=== PATIENT | female | born 1950 | race Caucasian/White ===

== ENCOUNTER 2016-12-05 17:51 | Emergency (ER) | payer MEDICARE, MEDICAID ==
[2016-12-05 20:12] VITALS: BP 142/62
--- NOTE | 2016-12-05 21:38 | RAD ---
INDICATION: Left knee injury COMPARISON: None TECHNIQUE: AP and lateral views were obtained. FINDINGS: There is advanced osteoarthritis about the medial and patellofemoral joint space compartments. There is minor spurring about the lateral joint space compartment. There is no acute bony change. There is no joint effusion IMPRESSION: OSTEOARTHRITIS. NO ACUTE BONY FINDINGS.
--- NOTE | 2016-12-05 21:39 | RAD ---
INDICATION: Fall. Leg pain COMPARISON: None TECHNIQUE: AP and lateral views were obtained. FINDINGS: There is a medial malleolar fracture. Please for to separate ankle report. No other acute bony findings are seen. There is osteoarthritis about the knee. There is mild diffuse subcutaneous edema which may be related to dependent edema. IMPRESSION: MEDIAL MALLEOLAR FRACTURE.
--- NOTE | 2016-12-05 21:42 | RAD ---
INDICATION: Left ankle injury COMPARISON: None TECHNIQUE: AP, lateral, and oblique views were obtained. FINDINGS: There is a nondisplaced fracture of the medial malleolus. There are no acute additional fractures. There is spurring over the dorsal aspect of the anterior talus perhaps with a remote avulsion. There are heel spurs. There is diffuse soft tissue swelling. IMPRESSION: ACUTE MEDIAL MALLEOLAR FRACTURE.
--- NOTE | 2016-12-05 23:58 | ED ---
Lower Extremity - HPI Summary HPI Summary: Patient presents to ED with CC of left ankle, lower leg and left knee pain after sustaining a fall at home. She states she felt light-headed and tripped. Daughter is with her interpreting for her d/t language barrier. Daughter states she receives 24 hour care at home and states she is being closely followed by several providers for her syncopal episodes and light headed episodes. She takes hydrocodone at baseline at home and took 2 prior to coming to ED. Denies hitting her head, LOC, memory changes or other trauma. Denies SOB, chest pain. States pain is mostly on the lateral and medial sides of the ankle but radiates up the leg to the proximal lower leg and also endorses knee pain. - History of Current Complaint Chief Complaint: EDExtremityLower Stated Complaint: FALL/SWOLLEN LEG Time Seen by Provider: 12/05/16 20:14 Hx Obtained From: Patient Onset of Pain: Immediate Onset/Duration: Days Severity Initially: Moderate Severity Currently: Moderate Pain Intensity: 7 Pain Scale Used: 0-10 Numeric Timing: Constant Location: Is Discrete @ - lateral and medial ankle Character Of Pain: Aching Associated Signs And Symptoms: Positive: Swelling, Knee Pain Aggravating Factor(s): Ambulation, Movement, Weight Bearing Alleviating Factor(s): Rest, Elevation Able to Bear Weight: No - Risk Factors Gout Risk Factors: Age Over 40 - Allergies/Home Medications Allergies/Adverse Reactions: Allergies Allergy/AdvReac Type Severity Reaction Status Date / Time No Known Allergies Allergy Verified 12/05/16 17:59 PMH/Surg Hx/FS Hx/Imm Hx Previously Healthy: Yes Endocrine/Hematology History: Reports: Hx Thyroid Disease Denies: Hx Diabetes Cardiovascular History: Reports: Hx Hypertension Denies: Hx Congestive Heart Failure, Hx Pacemaker/ICD Respiratory History: Reports: Hx Asthma History: Denies: Hx Dialysis, Hx Renal Disease Musculoskeletal History: Reports: Hx Back Problems Sensory History: Denies: Hx Hearing Aid Psychiatric History: Reports: Hx Panic Disorder - anxiety - Surgical History Surgery Procedure, Year, and Place: cardiac catheterization - 2011 Infectious Disease History: No Infectious Disease History: Denies: Traveled Outside the [place] in Last 30 Days - Family History Known Family History: Positive: Cardiac Disease - mother, Hypertension - mother - Social History Occupation: Disabled Lives: Alone Alcohol Use: None Hx Substance Use: No Substance Use Type: Reports: Prescribed Substance Use Comment - Amount & Last Used: hydrocodone Smoking Status (MU): Never Smoked Tobacco Review of Systems Constitutional: Negative Eyes: Negative Cardiovascular: Negative Respiratory: Negative Gastrointestinal: Negative Positive: Arthralgia, Myalgia, Decreased ROM, Edema - L medial and lateral malleolus with pain in L knee All Other Systems Reviewed And Are Negative: Yes Physical Exam Triage Information Reviewed: Yes Vital Signs On Initial Exam: Initial Vitals Temp Pulse Resp BP Pulse Ox 99.6 F 90 18 143/75 99 12/05/16 17:59 12/05/16 17:59 12/05/16 17:59 12/05/16 17:59 12/05/16 17:59 Vital Signs Reviewed: Yes Appearance: Positive: Well-Appearing, No Pain Distress Skin: Positive: Warm, Dry, Other - slight ecchymosis over left lateral malleolus Eyes: Positive: Normal, EOMI ENT: Positive: Normal ENT inspection Neck: Positive: Supple, Nontender, No Lymphadenopathy Respiratory/Lung Sounds: Positive: Clear to Auscultation, Breath Sounds Present Cardiovascular: Positive: Normal Musculoskeletal: Positive: Limited @, Abnormal @, Pain @ - left malleolus, left knee, Other - slight left knee effusion Neurological: Positive: Normal Psychiatric: Positive: Normal Procedures - Splinting Location: left malleolus Hand-Made Type: plaster Splint: sugar-tong - posterior Diagnostics - Vital Signs Vital Signs Temp Pulse Resp BP Pulse Ox 12/05/16 20:11 101.3 F 87 18 142/62 98 12/05/16 19:55 99.8 F 98 18 150/79 98 12/05/16 17:59 99.6 F 90 18 143/75 99 - Laboratory Lab Statement: Any lab studies that have been ordered have been reviewed, and results considered in the medical decision making process. - Radiology No standard instances Xray Interpretation: Positive (See Comments) - left medial malleolar fracture Radiology Interpretation Completed By: Radiologist Lower Extremity Course/Dx - Course Course Of Treatment: patient sent to Xray. daughter provided interpretation. xray showed medial malleolar fractutre, knee and proximal lower leg with no acute findings. posterior sugar tong placed. hydrocodone already prescribed to patient. sent home with crutches and close follow up with ortho in 2-3 days. Assessment/Plan: non weight bearing until follow up with ortho in 2-3 days. - Diagnoses Differential Diagnosis/HQI/PQRI: Positive: Fracture (Closed), Sprain, Strain Provider Diagnoses: Medial malleolar fracture Discharge - Discharge Plan Condition: Stable Disposition: HOME Patient Education Materials: Ankle Fracture (ED) Referrals: Tripp Wadsworth MD [Primary Care Provider] - Chandana Loving MD [Medical Doctor] - Additional Instructions: Non-weight bearing until ortho follow up May take hydrocodone prescribed to you at home for pain management. Ibuprofen as needed for pain and inflammation on opposite schedule as hydrocodone.
== END 2016-12-05 23:12 | disposition home or self-care (01) ==
LOC: ED 17:51
DX: S82.52XA Displaced fracture of medial malleolus of left tibia, initial encounter for closed fracture (principal); W18.09XA Striking against other object with subsequent fall, initial encounter; Y92.009 Unspecified place in unspecified non-institutional (private) residence as the place of occurrence of the external cause; I10 Essential (primary) hypertension; J45.909 Unspecified asthma, uncomplicated; F41.9 Anxiety disorder, unspecified
CPT/HCPCS: 29505; 99281

== ENCOUNTER 2017-12-09 19:25 | Emergency (ER) | payer MEDICARE, MEDICAID ==
--- OUTSIDE RECORDS SUMMARY | 2017-12-09 19:33 | XMS REPORT ---
:1950 External Reference #:[id number] Author Organization [facility] Address [address] [address] Phone [phone] Care Team Providers Name Role Phone Tripp Wadsworth MD Primary Care Physician Unavailable Payers Type Date Identification Numbers Payment Provider Subscriber Medicare Primary Effective: Policy Number: Medicare Amy Mata 2013 [id number] PayID: [id number] [address] [place] [address] [employer] Part B Expires: 2017 Policy Number: Medicaid Amy Mata [id number] Group Name: 1 1 [address] PayID: [id number] [place] [address] Medigap Part B Expires: 2016 Policy Number: Medicaid Amy Mata [id number] Group Name: 1 [address] PayID: [id number] [place] [address] Problems Date Description Provider Status Onset: 06/04/2012 Electrocardiogram abnormal Blanka Valdovinos D.O. Active Onset: 06/26/2012 Abnormal results of cardiovascular Blanka Valdovinos D.O. Active function studies Onset: 07/15/2012 Abnormal results of cardiovascular Maria C Mendoza N.P. Active function studies Onset: 12/25/2016 Closed fracture of medial malleolus Chandana Loving MD Active Onset: 02/15/2016 Obesity Sheila Silva MD Active Onset: 02/15/2016 Disturbance in sleep behavior Sheila Silva MD Active Family History Date Family Member(s) Problem(s) Comments General Hypertension Siblings 8 siblings 4 brothers in good health, 4 sisters in good health. Social History Type Date Description Comments Marital Status Lives With aide Occupation Disabled ETOH Use Denies alcohol use Smoking Denies tobacco use Recreational Drug Use Denies Drug Use Daily Caffeine Does Not Consume Caffeine Daily Caffeine Consumes on average 1 cup of hot tea per day Exercise Type/Frequency Exercises sporadically Allergies, Adverse Reactions, Alerts Date Description Reaction Status Severity Comments 06/03/2012 NKDA active Medications Medication Date Status Form Strength Qnty SIG Indications Ordering Provider Diltiazem CD 11/12/ Active Caps ER 180mg 30caps 1 by I10 Keshav Schroeder 2017 24HR mouth [facility], DO every day FACC Hydrocodone-Oneil 06/05/ Active Tablets 5-325mg 1-2 tabs Unknown taminophen 2015 by mouth every 4- 6 hours as needed pain Amitriptyline 02/13/ Active Tablets 50mg take 1 Unknown HCL 2016 tablets every night Aspir-81 02/13/ Active Tablets DR 81mg 1 by Unknown 2015 mouth every day Docusil 02/13/ Active Capsules 100mg 1 by Unknown 2016 mouth 2x per day Omeprazole 02/13/ Active Tablets DR 20mg 1 by Unknown 2015 mouth every day Symbicort 02/13/ Active Aerosol 80-4.5mcg/ 2 puff Unknown 2015 Act twice a day Simvastatin / Active Tablets 10mg 30tabs 1 po qhs Unknown 0000 Tramadol HCL ER / Active Tablets ER 100mg 60tabs 1 po bid Unknown 0000 24HR as needed for pain Alprazolam / Active Tablets 0.5mg 10tabs 1 po bid Unknown 0000 prn Paxil / Active Tablets 20mg 30tabs 1 po qd Unknown 0000 Hydrocodone-Oneil / Active Tablets 10-325mg Alejo, taminophen 0000 Corby, DO Gabapentin / Active Capsules 100mg Alejo, 0000 Corby, DO Oxycodone HCL 02/13/ Hx Capsules 5mg 1-2 tabs Unknown 2016 - by mouth 06/05/ every 4-6 2016 hours as needed pain Losartan / Hx Tablets 50mg 90tabs 2 po qd I10 Unknown Potassium 0000 - 2017 Citalopram / Hx Tablets 20mg 90tabs 1 po qd Unknown Hydrobromide 0000 - 2015 Xanax 00/ Hx Tablets 1mg 6tabs 1 po bid Unknown 0000 - prn 2015 Medications Administered in Office Medication Date Status Form Strength Qnty SIG Indications Ordering Provider Depomedrol Administered Injection Dirk Kina, 80MG 014 M.D. Vital Signs Date Vital Result Comment 11/12/2017 Height 63 inches 5'3" Weight 252.00 lb with shoes Heart Rate 78 /min BP Systolic 140 mmHg Rue lrg cuff BP Diastolic 80 mmHg Rue lrg cuff BP Systolic Sitting 134 mmHg Lue lrg cuff BP Diastolic Sitting 78 mmHg Lue lrg cuff BP Systolic Standing 128 mmHg Lue lrg cuff BP Diastolic Standing 80 mmHg Lue lrg cuff Respiratory Rate 18 /min BMI (Body Mass Index) 44.6 kg/m2 Ejection Fraction 55-60% 07/29/2014-echo 04/03/2017 Height 63 inches 5'3" Weight 243.00 lb Heart Rate 82 /min BP Systolic 150 mmHg BP Diastolic 98 mmHg Respiratory Rate 15 /min Body Temperature 98.4 F Pain Level 6 BMI (Body Mass Index) 43.0 kg/m2 02/05/2017 Height 63 inches 5'3" Weight 240.00 lb Heart Rate 68 /min Respiratory Rate 16 /min Pain Level 1 BMI (Body Mass Index) 42.5 kg/m2 12/25/2016 Height 63 inches 5'3" Weight 240.00 lb Heart Rate 68 /min Respiratory Rate 19 /min Pain Level 5 BMI (Body Mass Index) 42.5 kg/m2 12/11/2016 Height 63 inches 5'3" Weight 240.00 lb BP Systolic Sitting 112 mmHg BP Diastolic Sitting 78 mmHg Respiratory Rate 16 /min Pain Level 5 BMI (Body Mass Index) 42.5 kg/m2 06/06/2016 Height 63 inches 5'3" Weight 241.00 lb Heart Rate 70 /min BP Systolic 120 mmHg BP Diastolic 64 mmHg Respiratory Rate 14 /min O2 % BldC Oximetry 96 % BMI (Body Mass Index) 42.7 kg/m2 02/15/2016 Height 63 inches 5'3" Weight 241.50 lb Heart Rate 63 /min BP Systolic 128 mmHg BP Diastolic 80 mmHg Respiratory Rate 14 /min O2 % BldC Oximetry 95 % BMI (Body Mass Index) 42.8 kg/m2 Neck Circumference in inches 16 07/07/2014 Height 63 inches 5'3" Weight 246.00 lb Heart Rate 86 /min BP Systolic 130 mmHg BP Diastolic 81 mmHg BMI (Body Mass Index) 43.6 kg/m2 07/15/2012 Height 63 inches 5'3" Weight 252.25 lb Heart Rate 68 /min BP Systolic Sitting 134 mmHg BP Diastolic Sitting 88 mmHg BMI (Body Mass Index) 44.7 kg/m2 06/26/2012 Height 63 inches 5'3" Weight 250.00 lb Heart Rate 68 /min Regular BP Systolic Sitting 130 mmHg BP Diastolic Sitting 90 mmHg BMI (Body Mass Index) 44.3 kg/m2 06/04/2012 Weight 248.25 lb Heart Rate 72 /min BP Systolic Sitting 124 mmHg BP Diastolic Sitting 82 mmHg Results Test Date Test Result H/L Range Note Cath Panel 06/27/2012 PTT (Aptt) 25.9 SEC 25.1-38.5 CBC With Manual Diff 06/27/2012 White Blood Count 4.5 CUMM Low 4.8-10.8 Red Cell Count 4.07 CUMM Low 4.2-5.4 Hemoglobin 13.0 g/dL 12.0-16.0 Hematocrit 38 % 35-47 Mean Corpuscular Volume 92 um3 79-97 Mean Corpuscular Hemoglob 32 pg High 27-31 Mean Corpuscular HGB Cone 35 g/dL 32-36 Redcell Distribution WDTH 13 % 10.5-15 Platelet Count 188 CUMM 150-450 Mean Platelet Volume 10.1 um3 7.4-10.4 Absolute Neutrophil Count 2.5 1.5-7.7 Polysegmented Neutrophil 55 % 38-83 Lymphocyte 32 % 25-47 Monocyte 5 % 0-13 Eosinophil 4 % 0-6 Basophil 2 % 0-2 Atypical Lymph 2 % 0-6 RBC Morphology NORMAL Basic Metabolic Panel 06/27/2012 Sodium 140 mmol/L 135-145 Potassium 4.2 mmol/L 3.5-5.0 Chloride 108 mmol/L 101-111 Co2 (Carbon Dioxide) 28.0 mmol/L 22-32 Anion Gap 4.0 mmol/L 2-11 1 Glucose 97 mg/dL 70-100 BUN 11 mg/dL 6-24 Creatinine 0.5 mg/dL Low 0.50-1.40 One Over Creatinine 2.00 BUN/Creatinine Ratio 22.0 High 8-20 Calcium 8.8 mg/dL 8.1-9.9 eGFR Non- 124.6 > 60 eGFR 160.3 > 60 2 Protime 06/27/2012 Inr 0.86 Low 0.88-1.13 3 Protime 10.2 SEC Low 10.3-13.5 4 1 Anion gap measurement may be of limited value in the presence of any alkalosis, especially in a combined acid base disorder. . 2 Because ethnic data is not always readily available, this report includes an eGFR for both -Americans and non- Americans. The National Kidney Disease Education Program (NKDEP) does not endorse the use of the MDRD equation for patients that are not between the ages of 18 and 70, are , have extremes of body size, muscle mass, or nutritional status, or are non- or non-. According to the National Kidney Foundation, irrespective of diagnosis, the stage of the disease is based on the level of kidney function: Stage Description GFR(mL/min/1.73 m(2)) 1 Kidney damage with normal or decreased GFR 90 2 Kidney damage with mild decrease in GFR 60-89 3 Moderate decrease in GFR 30-59 4 Severe decrease in GFR 15-29 5 Kidney failure <15 (or dialysis) 3 Recommended INR for Patients on Oral Anticoagulants Prophylaxis 2.0 - 3.0 Treatment of thrombosis 2.0 - 3.0 Prevention of embolism 2.0 - 3.0 Prevention of embolism from prosthetic heart valves 2.5 - 3.5 4 DIAGNOSIS,TREATMENT,AND THERAPY MUST BE BASED ON THE INR VALUE ALONE. Procedures Date CPT Code Description Status 11/12/2017 92887 EKG Tracing & Interpretation Completed 12/11/2016 88281 closed treatment of medial malleolus fx w/o Completed maniplulation 04/30/2016 92650 Polysomnography Sleep Staging 4+ Parameters Completed 07/29/2014 83432 ECHO Transthorasic Realtime 2D W Doppler & Color Completed Flow Hosp 07/28/2014 66689 EKG, Interpretation Only Completed 07/07/2014 05180 Xray Knee 3 Views Completed 07/07/2014 48875 Xray Knee 3 Views Completed 07/07/2014 26220 Inject/Drain Joint/Bursa Major Completed 07/01/2012 13267 Left Heart Cath. Incl S/I Coronaries, Angio S/I V Gram Completed If Done 07/01/2012 23864 Left Heart Cath. Incl S/I Coronaries, Angio S/I V Gram Completed If Done 07/01/2012 23991 Left Heart Cath. Incl S/I Coronaries, Angio S/I V Gram Completed If Done 06/04/2012 16097 EKG Tracing & Interpretation Completed Encounters Type Date Location Provider CPT E/M Dx Office Visit 04/03/2017 1:30p [facility] Cast[facility] M.D. 31040 M17.12 C.MAdeel M17.11 Office Visit 06/06/2016 9:30a [facility] Emerald Harrington, 97169 R06.83 Services Of Kody ORTEGA RN, [facility]- G47.9 Office Visit 02/15/2016 8:45a [facility] [place] [address] G47.9 Services Of Kody E66.09 Office Visit 07/30/2014 2:42p [facility], Scott Messina M.D. 48523 427.31 Hospitalists 724.2 780.60 401.9 Office Visit 07/29/2014 2:41p [facility], Scott Messina M.D. 27731 780.60 Hospitalists 427.31 724.2 401.9 Office Visit 07/28/2014 2:40p [facility] [place] [facility] [place] [address] 427.31 Assoc, Hospitalraghu Ruth 780.60 401.9 724.2 Office Visit 07/07/2014 2:15p [facility] Castanon M.D. 71415 716.96 Of C.M.ABill Office Visit 07/15/2012 10:00a [facility] Maria C Mendoza, 37987 794.39 N.P. Office Visit 06/26/2012 1:40p [facility] Blanka Valdovinos, 07640 794.31 [facility] D.O. 401.1 794.30 V72.81 272.4 Office Visit 06/04/2012 1:40p [facility] Blanka Valdovinos D.O. 48316 794.31 V72.81 401.1 272.4 Plan of Care 11/12/2017 - Keshav Duke DO FACCI48.0 Paroxysmal atrial fibrillationNew Orders:[facility] TelemetryComments:Stop taking losartan ( only lowers blood pressure)Start taking diltiazem (lowers both blood pressureand heart rate), we may need a higher dose in the future.Follow up: after [id number] Essential (primary) hypertensionNew Medication:Diltiazem CD 180 mg
[2017-12-09] MEDS ORDERED: NS 0.9% 1000 ML* 1,000 ML IV ONE (20:04)
[2017-12-09 20:37] LABS: ABS Basophils 0.1 10^3/ul (0-0.2); ABS Eosinophils 0.1 10^3/ul (0-0.6); ABS Lymphocytes 2.1 10^3/ul (1.0-4.8); ABS Monocytes 0.6 10^3/ul (0-0.8); ABS Nucleated RBC 0 10^3/ul; Eosinophil % 2.1 % (0-6); Hematocrit 36 % (35-47); Hemoglobin 11.9 g/dl (12.0-16.0); Lymphocyte % 35.2 % (25-47); Mean Corpuscular HGB Conc 34 g/dl (31-36); Mean Corpuscular Hemoglobin 30 pg (27-31); Mean Corpuscular Volume 89 fL (80-97); Mean Platelet Volume 9 um3 (7.4-10.4); Nucleated Red Blood Cells % 0.1; Platelet Count 187 10^3/ul (150-450); Red Blood Count 3.97 10^6/ul (4.0-5.4); Red Cell Distribution Width 13 % (10.5-15); White Blood Count 5.9 10^3/ul (3.5-10.8)
[2017-12-09 20:51] LABS: EGFR Non-African American 103.1 (>60)
[2017-12-09 21:32] LABS: Urine Appearance Clear; Urine Blood Negative (Negative); Urine Color Colorless; Urine Ketones Negative (Negative); Urine Protein Negative (Negative); Urine Specific Gravity 1.003 (1.010-1.030); Urine Urobilinogen Negative (Negative)
[2017-12-09 21:49] VITALS: BP 143/79
--- NOTE | 2017-12-09 22:45 | ED ---
Ann Cristobal Gabriel, scribed for Antelmo Major MD on 12/09/17 at 2004 . Complex/Multi-Sys Presentation - HPI Summary HPI Summary: This patient is a 67 year old F [place] [facility] [place] by her daughter who is acting as a spanish speaking nanny. The daughter reports her mother felt like her limbs were numb, she had palpitations, was SOB, had a hot sensation in her chest, and a near syncope feeling. The symptoms began at 1800 tonight while she was sitting on the computer and reports a BP of 180/120 during. Patient denies cough , fever, and rhinorrhea. She has a history of anxiety and panic attack but says that this felt different. Currently they has all resolved except for a numbness in her limbs. - History Of Current Complaint Chief Complaint: EDChestPainROMI Time Seen by Provider: 12/09/17 19:39 Hx Obtained From: Family/Coroner Transport Technician Onset/Duration: Lasting Hours, Resolved Timing: Intermittent, Lasting: Severity Currently: None Severity Initially: Moderate Associated Signs And Symptoms: Positive: SOB, Chest Pain, Palpitations, Other - felt like her limbs were numb, she had palpitations, was SOB, had a hot sensation in her chest, and a near syncope feeling - Allergies/Home Medications Allergies/Adverse Reactions: Allergies Allergy/AdvReac Type Severity Reaction Status Date / Time No Known Allergies Allergy Verified 12/09/17 19:46 PMH/Surg Hx/FS Hx/Imm Hx Endocrine/Hematology History: Reports: Hx Thyroid Disease Denies: Hx Diabetes Cardiovascular History: Reports: Hx Atrial Fibrillation, Hx Hypercholesterolemia , Hx Hypertension Denies: Hx Congestive Heart Failure, Hx Pacemaker/ICD Respiratory History: Reports: Hx Asthma History: Denies: Hx Dialysis, Hx Renal Disease Musculoskeletal History: Reports: Hx Back Problems Sensory History: Denies: Hx Hearing Aid Psychiatric History: Reports: Hx Panic Disorder - anxiety - Surgical History Surgery Procedure, Year, and Place: cardiac catheterization - 2012 - Immunization History Date of Influenza Vaccine: Pt has not recieved Infectious Disease History: No Infectious Disease History: Denies: Traveled Outside the [place] in Last 30 Days - Family History Known Family History: Positive: Cardiac Disease - mother, Hypertension - mother Negative: Respiratory Disease, Seizure Disorder - Social History Alcohol Use: None Hx Substance Use: No Substance Use Type: Reports: Prescribed Substance Use Comment - Amount & Last Used: hydrocodone Hx Tobacco Use: No Smoking Status (MU): Never Smoked Tobacco Review of Systems Negative: Fever Negative: Nasal Discharge Positive: Palpitations, Chest Pain Positive: Shortness Of Breath. Negative: Cough Genitourinary: Other - near syncope Positive: Paresthesia - in all limbs , Numbness - in all limbs All Other Systems Reviewed And Are Negative: Yes Physical Exam - Summary Physical Exam Summary: Appearance: Well-appearing, no distress, Well-nourished Skin: Warm, color reflects adequate perfusion Head: Normal Head/Face inspection Eyes: Conjunctiva clear ENT: Normal inspection Neck: Supple, no nodes, no JVD. Respiratory: Lungs clear, Normal breath sounds, no respiratory distress Cardio: RRR, No murmur, pulses normal, brisk capillary refill Abdomen: soft, nontender, no guarding, no rebound Bowel sounds: present Musculoskeletal: Strength Intact/ ROM intact. No calf tenderness. No edema. Neuro: Alert, muscle tone normal, facial symmetry, speech normal, sensory/motor intact, CN intact II-XII Psychological: Normal Triage Information Reviewed: Yes Vital Signs On Initial Exam: Initial Vitals Temp Pulse Resp BP Pulse Ox 98.5 F 64 16 137/72 99 12/09/17 19:25 12/09/17 19:25 12/09/17 19:25 12/09/17 19:25 12/09/17 19:25 Vital Signs Reviewed: Yes Appearance: Positive: Well-Appearing Diagnostics - Vital Signs Vital Signs Temp Pulse Resp BP Pulse Ox 12/09/17 19:36 68 13 98 12/09/17 19:35 137/72 12/09/17 19:25 98.5 F 64 16 137/72 99 - Laboratory Lab Results: Lab Results 12/09/17 12/09/17 Range/Units 20:25 20:25 WBC 5.9 (3.5-10.8) 10^3/ul RBC 3.97 L (4.0-5.4) 10^6/ul Hgb 11.9 L (12.0-16.0) g/dl Hct 36 (35-47) % MCV 89 (80-97) fL MCH 30 (27-31) pg MCHC 34 (31-36) g/dl RDW 13 (10.5-15) % Plt Count 187 (150-450) 10^3/ul MPV 9 (7.4-10.4) um3 Neut % (Auto) 50.8 (38-83) % Lymph % (Auto) 35.2 (25-47) % Sierra % (Auto) 10.9 H (1-9) % Eos % (Auto) 2.1 (0-6) % Baso % (Auto) 1.0 (0-2) % Absolute Neuts (auto) 3.0 (1.5-7.7) 10^3/ul Absolute Lymphs (auto) 2.1 (1.0-4.8) 10^3/ul Absolute Monos (auto) 0.6 (0-0.8) 10^3/ul Absolute Eos (auto) 0.1 (0-0.6) 10^3/ul Absolute Basos (auto) 0.1 (0-0.2) 10^3/ul Absolute Nucleated RBC 0 10^3/ul Nucleated RBC % 0.1 Sodium 139 (133-145) mmol/L Potassium 4.0 (3.5-5.0) mmol/L Chloride 107 (101-111) mmol/L Carbon Dioxide 28 (22-32) mmol/L Anion Gap 4 (2-11) mmol/L BUN 17 (6-24) mg/dL Creatinine 0.58 (0.51-0.95) mg/dL Est GFR ( Amer) 132.6 (>60) Est GFR (Non-Af Amer) 103.1 (>60) BUN/Creatinine Ratio 29.3 H (8-20) Glucose 110 H (70-100) mg/dL Calcium 8.9 (8.6-10.3) mg/dL Total Bilirubin 0.30 (0.2-1.0) mg/dL AST 12 L (13-39) U/L ALT 10 (7-52) U/L Alkaline Phosphatase 74 (34-104) U/L Troponin I 0.00 (<0.04) ng/mL Total Protein 6.7 (6.4-8.9) g/dL Albumin 3.8 (3.2-5.2) g/dL Globulin 2.9 (2-4) g/dL Albumin/Globulin Ratio 1.3 (1-3) Result Diagrams: 12/09/17 20:25 12/09/17 20:25 Lab Statement: Any lab studies that have been ordered have been reviewed, and results considered in the medical decision making process. - EKG 19:33 Cardiac Rate: NL EKG Rhythm: Sinus Rhythm - at 64 bpm EKG Interpretation: first degree AV block, normal axis, T wave inversions in V2- V6 EKG Comparison: Other - new EKG changes noted Re-Evaluation - Re-Evaluation First Eval Change: Improved - Pt symptomatically improved. pt resting comfortably in bed. Pt symptoms resolved. pt requesting d/c home. Pt with no acute distress. Pt repeat CN exam intact II-XII. Complex Multi-Symp Course/Dx - Diagnoses Differential Diagnoses/HQI/PQRI: Cardiac Ischemia, CVA, Metabolic Abnormality, Urinary Tract Infection Provider Diagnoses: Paresthesia Discharge - Discharge Plan Condition: Improved Disposition: HOME Patient Education Materials: Paresthesia (ED) Referrals: Tripp Wadsworth MD [Primary Care Provider] - 3 Days Additional Instructions: Please follow up with your Physician in 2-3 days. Please return to this Emergency Department if symptoms worsen or return. The documentation as recorded by the Ann martinez Gabriel accurately reflects the service I personally performed and the decisions made by , Antelmo Major MD.
== END 2017-12-09 21:48 | disposition home or self-care (01) ==
LOC: ED 19:25
DX: R20.2 Paresthesia of skin (principal); R00.2 Palpitations
CPT/HCPCS: 36415; 80053; 81003; 84484; 85025; 93005; 96360; 99283

== ENCOUNTER 2018-06-06 08:15 | Emergency (ER) | payer MEDICARE, MEDICAID ==
--- NOTE | 2018-06-06 08:52 | ED ---
Complex/Multi-Sys Presentation - HPI Summary HPI Summary: This is juan Quintanilla documenting for Dr. Samuel Gaitan MD. Pt is a 67 y/o F who presents to ED c/o left wrist pain. This morning she had vertigo and fell when she went to the bathroom, but denies feeling dizzy anymore. She hit her head but did not lose consciousness. Rates her pain intensity as a 5/10 at triage. Denies head pain or abdominal pain. Notes lower back pain. She is ambulatory and walked into ED. Pt also notes that [place] is not her first language. Denies PMHx of heart problems. Has essential tremors at baseline. - History Of Current Complaint Chief Complaint: EDTraumaMultiple Time Seen by Provider: 06/06/18 08:30 Hx Obtained From: Patient Onset/Duration: Lasting Hours, Still Present Severity Currently: Moderate - 5/10 Associated Signs And Symptoms: Positive: Dizziness - resolved, Back Pain, Recent Trauma - Fell in the bathroom. Negative: Syncope, Headache, Abdominal Pain - Allergies/Home Medications Allergies/Adverse Reactions: Allergies Allergy/AdvReac Type Severity Reaction Status Date / Time No Known Allergies Allergy Verified 06/06/18 08:25 PMH/Surg Hx/FS Hx/Imm Hx Endocrine/Hematology History: Reports: Hx Thyroid Disease Denies: Hx Diabetes Cardiovascular History: Reports: Hx Atrial Fibrillation, Hx Hypercholesterolemia , Hx Hypertension Denies: Hx Congestive Heart Failure, Hx Pacemaker/ICD Respiratory History: Reports: Hx Asthma History: Denies: Hx Dialysis, Hx Renal Disease Musculoskeletal History: Reports: Hx Back Problems Sensory History: Denies: Hx Hearing Aid Psychiatric History: Reports: Hx Panic Disorder - anxiety - Surgical History Surgery Procedure, Year, and Place: cardiac catheterization - 2011 - Immunization History Date of Influenza Vaccine: Pt has not recieved Infectious Disease History: No Infectious Disease History: Denies: Traveled Outside the [place] in Last 30 Days - Family History Known Family History: Positive: Cardiac Disease - mother, Hypertension - mother Negative: Respiratory Disease, Seizure Disorder - Social History Alcohol Use: None Hx Substance Use: No Substance Use Type: Reports: Prescribed Substance Use Comment - Amount & Last Used: hydrocodone Hx Tobacco Use: No Smoking Status (MU): Never Smoked Tobacco Review of Systems Positive: Other - Vertigo that is now resolved Negative: Abdominal Pain Positive: Other - lower back pain Negative: Headache, Syncope All Other Systems Reviewed And Are Negative: Yes Physical Exam - Summary Physical Exam Summary: Appearance: Well appearing, no pain distress Skin: abrasion on left foot dorsal aspect, warm, dry, reflects adequate perfusion Head/face: normal Eyes: EOMI, MATTHEW ENT: normal Neck: supple, non-tender Respiratory: CTA, breath sounds present Cardiovascular: RRR, pulses symmetrical Abdomen: non-tender, soft Bowel: present Musculoskeletal: Tenderness over left wrist and right sacroiliac joint, strength /ROM intact Neuro: normal, sensory motor intact, A&Ox3 Triage Information Reviewed: Yes Vital Signs On Initial Exam: Initial Vitals Temp Pulse Resp BP Pulse Ox 99 F 77 20 146/72 96 06/06/18 08:18 06/06/18 08:18 06/06/18 08:18 06/06/18 08:18 06/06/18 08:18 Vital Signs Reviewed: Yes Diagnostics - Vital Signs Vital Signs Temp Pulse Resp BP Pulse Ox 06/06/18 08:32 72 22 145/99 95 06/06/18 08:31 72 16 96 06/06/18 08:18 99 F 77 20 146/72 96 - Laboratory Result Diagrams: 06/06/18 08:52 06/06/18 08:52 Lab Statement: Any lab studies that have been ordered have been reviewed, and results considered in the medical decision making process. - Radiology CXR Radiology Interpretation Completed By: Radiologist - 08:36. IMPRESSION: LOW LUNG VOLUMES NO ACTIVE CARDIOPULMONARY DISEASE. ED Physician reviewed this report. Wrist X-Ray Radiology Interpretation Completed By: Radiologist - 08:37. IMPRESSION: OSTEOARTHRITIS. NO ACUTE OSSEOUS INJURY. IF SYMPTOMS PERSIST, RECOMMEND REPEAT IMAGING. ED Physician reviewed this report. Hand X-Ray Radiology Interpretation Completed By: Radiologist - 08:38. IMPRESSION: OSTEOARTHRITIS. NO ACUTE OSSEOUS INJURY. IF SYMPTOMS PERSIST, RECOMMEND REPEAT IMAGING. ED Physician reviewed this report. Lumbar Spine X-Ray Radiology Interpretation Completed By: Radiologist - 08:39. IMPRESSION: SCOLIOSIS. DEGENERATIVE DISC DISEASE AND OSTEOARTHRITIS. ED Physician reviewed this report. - CT Brain CT CT Interpretation Completed By: Radiologist - 08:37. IMPRESSION: NO ACUTE INTRACRANIAL PATHOLOGY. ED Physician reviewed this report. - EKG 08:41 Cardiac Rate: NL - 70 bpm EKG Rhythm: Sinus Rhythm ST Segment: Non-Specific - Non-specific ST changes Complex Multi-Symp Course/Dx - Diagnoses Differential Diagnoses/HQI/PQRI: Urinary Tract Infection, Other - back pain/ sprain/fx vertebra/wrist fx Provider Diagnoses: Fall, Head injury, Left wrist sprain, Back pain Discharge - Sign-Out/Discharge Documenting (check all that apply): Patient Departure - Discharge - Discharge Plan Condition: Stable Disposition: HOME Patient Education Materials: Head Injury (ED), Back Pain (ED), Fall Prevention (ED), Wrist Sprain (ED) Referrals: Tripp Wadsworth MD [Primary Care Provider] - 3 Days Chandana Loving MD [Medical Doctor] - 1 Day Additional Instructions: Take Motrin for pain and follow up with Dr. Loving. Return to ED for any new or worsening symptoms. - Billing Disposition and Condition Condition: STABLE Disposition: Home
[2018-06-06 09:04] LABS: ABS Basophils 0 10^3/ul (0-0.2); ABS Eosinophils 0.1 10^3/ul (0-0.6); ABS Lymphocytes 1.5 10^3/ul (1.0-4.8); ABS Monocytes 0.5 10^3/ul (0-0.8); ABS Neutrophils 3.6 10^3/ul (1.5-7.7); ABS Nucleated RBC 0 10^3/ul; Eosinophil % 2.2 % (0-6); Hematocrit 36 % (35-47); Hemoglobin 12.6 g/dl (12.0-16.0); Lymphocyte % 26.4 % (25-47); Mean Corpuscular HGB Conc 35 g/dl (31-36); Mean Corpuscular Hemoglobin 31 pg (27-31); Mean Corpuscular Volume 89 fL (80-97); Mean Platelet Volume 9.6 um3 (7.4-10.4); Nucleated Red Blood Cells % 0; Platelet Count 176 10^3/ul (150-450); Red Blood Count 4.07 10^6/ul (4.00-5.40); Red Cell Distribution Width 13 % (10.5-15); White Blood Count 5.8 10^3/ul (3.5-10.8)
[2018-06-06 09:21] LABS: EGFR Non-African American 119.6 (>60); INR 0.98 (0.77-1.02)
--- NOTE | 2018-06-06 09:53 | RAD ---
HISTORY: head injury COMPARISONS: Head CT dated June 08, 2009 TECHNIQUE: Multiple contiguous axial CT scans were obtained of the head without intravenous contrast. FINDINGS: HEMORRHAGE/INFARCT: There is no hemorrhage or acute infarct. MASSES/SHIFT: There is no mass or shift. EXTRA-AXIAL SPACES: There are no extra-axial fluid collections. SULCI AND VENTRICLES: The sulci and ventricles are normal in size and position for the patient's stated age. CEREBRUM: There are no focal parenchymal abnormalities. BRAINSTEM: There are no focal parenchymal abnormalities. CEREBELLUM: There are no focal parenchymal abnormalities. VESSELS: The vessels are grossly normal. PARANASAL SINUSES: The paranasal sinuses are clear. ORBITS: The orbits are unremarkable. BONES AND SOFT TISSUE: No bone or soft tissue abnormalities are noted. OTHER: None IMPRESSION: NO ACUTE INTRACRANIAL PATHOLOGY.
--- NOTE | 2018-06-06 10:05 | RAD ---
HISTORY: dizzy COMPARISONS: May 06, 2017 VIEWS: 2: frontal portable view of the chest at 9:55 AM FINDINGS: LINES AND TUBES: None. CARDIOMEDIASTINAL SILHOUETTE: The cardiomediastinal silhouette is normal for portable technique and phase of respiration. PLEURA: The costophrenic angles are sharp. No pleural abnormalities are noted. LUNG PARENCHYMA: The lung volumes are low. The lungs are clear accounting for the phase of respiration. ABDOMEN: The upper abdomen is clear. There is no subphrenic gas. BONES AND SOFT TISSUES: No bone or soft tissue abnormalities are noted. IMPRESSION: LOW LUNG VOLUMES NO ACTIVE CARDIOPULMONARY DISEASE.
--- NOTE | 2018-06-06 10:06 | RAD ---
HISTORY: fall/back pains COMPARISONS: March 05, 2013 VIEWS: 5 , Frontal, lateral, coned-down lateral sacral, and bilateral oblique views of the lumbar spine. 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 VERTEBRAL BODIES: There is multilevel anterolateral marginal osteophyte formation. The vertebral bodies are preserved in height. JOINTS: There is facet osteoarthritis most pronounced along the lower lumbar spine. INTERVERTEBRAL DISCS: There is diffuse loss of intervertebral disc height. SOFT TISSUE: Unremarkable. OTHER: The pelvis is unremarkable. The lung bases are clear. IMPRESSION: SCOLIOSIS. DEGENERATIVE DISC DISEASE AND OSTEOARTHRITIS.
--- NOTE | 2018-06-06 10:07 | RAD ---
HISTORY: pain/fall COMPARISONS: None VIEWS: 6, Frontal, lateral, and oblique views of the left hand and left wrist FINDINGS: BONE DENSITY: Normal. BONES: There is no displaced fracture. JOINTS: There is osteoarthritis of the first CMC and STT joints. There is osteoarthritis of interphalangeal joints and of the distal radioulnar articulation. ALIGNMENT: There is no dislocation. SOFT TISSUES: Unremarkable. OTHER FINDINGS: None. IMPRESSION: OSTEOARTHRITIS. NO ACUTE OSSEOUS INJURY. IF SYMPTOMS PERSIST, RECOMMEND REPEAT IMAGING.
[2018-06-06 10:16] LABS: Urine Appearance Clear; Urine Blood Negative (Negative); Urine Color Yellow; Urine Ketones Negative (Negative); Urine Protein Negative (Negative); Urine Red Blood Cell Trace(0-2/hpf) (Absent); Urine Urobilinogen Negative (Negative); Urine White Blood Cell 1+(6-10/hpf) (Absent)
[2018-06-06 11:02] VITALS: BP 139/87
== END 2018-06-06 11:02 | disposition home or self-care (01) ==
LOC: ED 08:15
DX: S63.502A Unspecified sprain of left wrist, initial encounter (principal); S09.90XA Unspecified injury of head, initial encounter; M54.9 Dorsalgia, unspecified; W19.XXXA Unspecified fall, initial encounter; Y92.89 Other specified places as the place of occurrence of the external cause; E07.9 Disorder of thyroid, unspecified; I48.91 Unspecified atrial fibrillation; I10 Essential (primary) hypertension; E78.00 Pure hypercholesterolemia, unspecified; J45.909 Unspecified asthma, uncomplicated; R42 Dizziness and giddiness
CPT/HCPCS: 36415; 70450; 71045; 72110; 80053; 81003; 81015; 84484; 85025; 85610; 85730; 87086; 93005; 99283